=== PATIENT | male | born 1990 | race African-American/Black ===

== ENCOUNTER → 2016-07-11 | Emergency (ER) | payer SELFPAY | LOC: NAV ERS 17:08 | DX: T78.40XA Allergy, unspecified, initial encounter (principal); Z87.891 Personal history of nicotine dependence; Z79.899 Other long term (current) drug therapy | CPT/HCPCS: 99282 ==

== ENCOUNTER 2016-11-20 22:21 | Emergency (ER) | payer SELFPAY ==
[2016-11-20] MEDS ORDERED: Ketorolac Tromethamine 60 MG/2 ML VIAL ONE (23:01)
== END 2016-11-20 23:24 | disposition home or self-care (01) ==
LOC: NAV ERS 22:21
DX: M54.5 Low back pain (principal); E66.9 Obesity, unspecified; Z87.891 Personal history of nicotine dependence; Z79.899 Other long term (current) drug therapy
CPT/HCPCS: 96372; J1885

== ENCOUNTER 2016-12-01 06:14 | Emergency (ER) | payer SELFPAY ==
[2016-12-01] MEDS ORDERED: Cephalexin 250 MG CAP ONE (06:45)
[2016-12-01] MEDS ORDERED: Ibuprofen 800 MG TAB ONE (06:45)
== END 2016-12-01 06:54 | disposition home or self-care (01) ==
LOC: NAV ERS 06:14
DX: L03.011 Cellulitis of right finger (principal); Z87.891 Personal history of nicotine dependence; Z79.899 Other long term (current) drug therapy
CPT/HCPCS: 99283

== ENCOUNTER 2016-12-31 06:18 | Emergency (ER) | payer SELFPAY | END 2016-12-31 06:58 | disposition home or self-care (01) | LOC: NAV ERS 06:18 | DX: H65.92 Unspecified nonsuppurative otitis media, left ear (principal); Z87.891 Personal history of nicotine dependence; Z79.899 Other long term (current) drug therapy | CPT/HCPCS: 99282 ==

== ENCOUNTER 2017-10-29 01:28 | Emergency (ER) | payer OTHER ==
[2017-10-29] MEDS ORDERED: Sodium Chloride 0.9% 1,000 ML ONE (02:11)
[2017-10-29 02:15] LABS: #Basophils 0.1 thou/uL (0.0-0.2); #Eosinphils 0.1 thou/uL (0.0-0.7); #Lymphocytes 3.3 thou/uL (1.20-3.40); #Monocytes 0.8 thou/uL (0.11-0.59); #Neutrophils 6.8 thou/uL (1.40-6.50); %Basophils 1.1 % (0.0-1.0); %Eosinophils 0.7 % (0.0-10.0); %Lymphocytes 29.7 % (21.0-51.0); %Monocytes 7.1 % (0.0-10.0); %Neutrophils 61.4 % (42.0-75.0); Mean Corpuscular HGB CONC 31.5 g/dL (32.0-36.0); Mean Corpuscular Hemoglobin 28.5 pg (27.0-31.0); Mean Corpuscular Volume 90.6 fL (78.0-98.0); Mean Platelet Volume 6.5 fL (7.4-10.4); Platelet Count 329 thou/uL (130-400); White Blood Cell (WBC) Count 11.1 thou/uL (4.8-10.8)
[2017-10-29 02:22] LABS: Bilirubin Negative (Negative); Blood, Urine Large (Negative); Clarity Clear (Clear); Glucose, Urine (Dipstick) Negative (Negative); Leukocyte Negative (Negative); Nitrite Negative (Negative); Protein, Urine (Dipstick) 30 mg/dL (Neg-Trace); Urobilinogen 0.2 mg/dL (0.2-1.0)
[2017-10-29 02:29] LABS: ALT (SGPT) 37 U/L (8-55); AST (SGOT) 25 U/L (5-34); Albumin 4.5 g/dL (3.5-5.0); Alkaline Phosphatase 43 U/L (40-150); Anion Gap 16 mmol/L (10-20); BUN (Urea Nitrogen) 16 mg/dL (8.9-20.6); Bilirubin, Total 0.4 mg/dL (0.2-1.2); Calc. Creatinine Clearance 0 mL/min (70-130); Calcium 9.5 mg/dL (7.8-10.44); Carbon Dioxide 24 mmol/L (22-29); Chloride 102 mmol/L (98-107); Estimated GFR-MDRD Greater than 90; Globulin 3.3 g/dL (2.4-3.5); Glucose 165 mg/dL (70-105); Potassium 3.8 mmol/L (3.5-5.1); Protein, Total 7.8 g/dL (6.0-8.3); Sodium 138 mmol/L (136-145)
[2017-10-29 02:30] LABS: Amphetamine Not Detected (NotDetected); Barbiturates Screen Not Detected (NotDetected); Benzodiazepine Screen Not Detected (NotDetected); Cocaine Metabolite Screen Not Detected (NotDetected); Medtox Control Line Valid? VALID (VALID); Methadone Not Detected (NotDetected); Methamphetamine Not Detected (NotDetected); Opiate Screen Not Detected (NotDetected); Oxycodone Screen Not Detected (NotDetected); Phencyclidine (PCP) Not Detected (NotDetected); THC/Cannabinoid Screen Not Detected (NotDetected); Tricyclic Screen Not Detected (NotDetected)
[2017-10-29 02:31] LABS: CKMB 1.4 ng/mL (0-6.6); Troponin I Less than 0.010 ng/mL (< 0.028)
[2017-10-29 02:31] LABS: WBC/HPF 0-3 HPF (0-3)
[2017-10-29 02:32] LABS: Bacteria/HPF Rare-Few HPF (None Seen); Squamous Epithelial 0-3 HPF (0-3)
== END 2017-10-29 03:53 | disposition home or self-care (01) ==
LOC: NAV ERS 01:28
DX: R20.2 Paresthesia of skin (principal); R00.0 Tachycardia, unspecified; R73.9 Hyperglycemia, unspecified; Z79.899 Other long term (current) drug therapy; Z87.891 Personal history of nicotine dependence
CPT/HCPCS: 80053; 80306; 81003; 81015; 82553; 84484; 85025; 93005; 96360; 96361; J7050

== ENCOUNTER 2018-02-23 08:09 | Emergency (ER) | payer OTHER | END 2018-02-23 09:01 | disposition home or self-care (01) | LOC: NAV ERS 08:09 | DX: J20.9 Acute bronchitis, unspecified (principal); Z87.891 Personal history of nicotine dependence; Z79.899 Other long term (current) drug therapy | CPT/HCPCS: 99283 ==

== ENCOUNTER 2018-06-14 15:59 | Emergency (ER) | payer OTHER, SELFPAY | END 2018-06-14 16:40 | disposition home or self-care (01) | LOC: NAV ERS 15:59 | DX: B34.9 Viral infection, unspecified (principal); Z87.891 Personal history of nicotine dependence | CPT/HCPCS: 99281 ==